=== PATIENT | male | born 1975 | race Caucasian/White ===

== ENCOUNTER 2016-06-28 08:00 | Outpatient (CLI) | payer BC | END 2016-06-28 08:01 | disposition home or self-care (01) | DX: E11.9 Type 2 diabetes mellitus without complications (principal); R74.8 Abnormal levels of other serum enzymes ==

== ENCOUNTER 2016-07-12 10:37 | Outpatient (CLI) | payer BC | END 2016-07-12 10:38 | disposition home or self-care (01) | DX: R74.8 Abnormal levels of other serum enzymes (principal) ==

== ENCOUNTER 2016-08-23 14:42 | Outpatient (CLI) | payer BC | END 2016-08-23 14:43 | disposition home or self-care (01) | DX: K76.0 Fatty (change of) liver, not elsewhere classified (principal) ==